=== PATIENT | male | born 1970 | race Caucasian/White ===

== ENCOUNTER 2021-01-18 08:12 | Day surgery (SDC) | payer OTHER ==
[2021-01-17 10:50] VITALS: BMI 28.0
[2021-01-18] MEDS ORDERED: Dexmedetomidine 200 MCG/2 ML VIAL ONE (08:31)
[2021-01-18] MEDS ORDERED: Fentanyl 100 MCG/2 ML VIAL ONE (08:31)
[2021-01-18] MEDS ORDERED: Lidocaine 1% PF 5 ML VIAL ONE (09:40)
[2021-01-18] MEDS ORDERED: Ondansetron PF 4 MG/2 ML Vial ONE (09:40)
[2021-01-18] MEDS ORDERED: Dexamethasone 20 MG/5 ML VIAL ONE (09:40)
[2021-01-18] MEDS ORDERED: PROPOFOL 200 MG/20 ML VIAL ONE (09:40)
== END 2021-01-18 12:25 | disposition home or self-care (01) ==
LOC: SDC 08:12
PROVIDERS: ATTEND Surgery
PROC: 0WUF0JZ Supplement Abdominal Wall with Synthetic Substitute, Open Approach (ICD-10-PCS; principal; 2021-01-18)
DX: K42.9 Umbilical hernia without obstruction or gangrene (principal); E78.2 Mixed hyperlipidemia; Z79.899 Other long term (current) drug therapy; Z98.52 Vasectomy status; Z87.81 Personal history of (healed) traumatic fracture
CPT/HCPCS: J0690; J1100; J2405; J2704; J3010

== ENCOUNTER 2022-10-20 09:36 | Observation (INO) | payer BC, OTHER ==
[2022-10-20 10:51] LABS: ALT (SGPT) 29 U/L (8-55); AST (SGOT) 30 U/L (5-34); Albumin 4.5 g/dL (3.5-5.0); Alkaline Phosphatase 52 U/L (40-110); Anion Gap 15 mmol/L (10-20); BUN (Urea Nitrogen) 13 mg/dL (8.9-20.6); Bilirubin, Total 0.6 mg/dL (0.2-1.2); CK (CPK) 510 U/L (30-200); Calc. Creatinine Clearance 0 mL/min (70-130); Calcium 9.7 mg/dL (7.8-10.44); Carbon Dioxide 24 mmol/L (22-29); Chloride 104 mmol/L (98-107); Estimated GFR 95; Globulin 2.9 g/dL (2.4-3.5); Glucose 102 mg/dL (70-105); Lipase 12 U/L (8-78); Potassium 4.1 mmol/L (3.5-5.1); Protein, Total 7.4 g/dL (6.0-8.3); Sodium 139 mmol/L (136-145)
[2022-10-20 10:54] LABS: #Eosinphils 0.2 thou/uL (0.0-0.7); #Lymphocytes 1.5 thou/uL (1.20-3.40); #Monocytes 0.6 thou/uL (0.11-0.59); #Neutrophils 3.8 thou/uL (1.40-6.50); %Basophils 0.8 % (0.0-1.0); %Eosinophils 3.2 % (0.0-10.0); %Lymphocytes 24.4 % (21.0-51.0); %Monocytes 9.6 % (0.0-10.0); %Neutrophils 62.1 % (42.0-75.0); Hemoglobin 14.8 g/dL (14.0-18.0); Mean Corpuscular HGB CONC 36.4 g/dL (32.0-36.0); Mean Corpuscular Hemoglobin 34.3 pg (27.0-31.0); Mean Corpuscular Volume 94.3 fl (78.0-98.0); Mean Platelet Volume 7.9 fL (7.4-10.4); Platelet Count 288 10x3/uL (130-400); RBC Distribution Width 11.6 % (11.5-14.5); White Blood Cell (WBC) Count 6.1 10x3/uL (4.8-10.8)
[2022-10-20] MEDS ORDERED: Aspirin Chewable 81 MG TAB ONE (11:36)
[2022-10-20] MEDS ORDERED: Nitroglycerin 2% Ointment 1 INCH/1 GM Packet ONE (11:36)
[2022-10-20] MEDS ORDERED: Acetaminophen 325 MG TAB PO PRN (12:17)
[2022-10-20] MEDS ORDERED: Senokot S 8.6-50 MG TAB PO PRN (12:17)
[2022-10-20] MEDS ORDERED: Nitroglycerin 0.4 MG TAB (25 Tab Bottle) SL PRN (12:20)
[2022-10-20] MEDS ORDERED: Sodium Chloride 0.9% 1,000 ML IV SCH (12:30)
[2022-10-20 13:39] LABS: Troponin I 0.012 ng/mL (< 0.028)
[2022-10-20 15:53] VITALS: BMI 30.7
[2022-10-20 16:33] LABS: Troponin I Less than 0.010 ng/mL (< 0.028)
[2022-10-20] MEDS ORDERED: Famotidine 20 MG TAB PO SCH (21:00)
[2022-10-21 05:01] LABS: #Eosinphils 0.2 thou/uL (0.0-0.7); #Lymphocytes 1.7 thou/uL (1.20-3.40); #Monocytes 0.6 thou/uL (0.11-0.59); #Neutrophils 3.5 thou/uL (1.40-6.50); %Basophils 0.1 % (0.0-1.0); %Eosinophils 3.4 % (0.0-10.0); %Lymphocytes 28.5 % (21.0-51.0); %Monocytes 9.7 % (0.0-10.0); %Neutrophils 58.3 % (42.0-75.0); Mean Corpuscular HGB CONC 33.8 g/dL (32.0-36.0); Mean Corpuscular Hemoglobin 32.2 pg (27.0-31.0); Mean Corpuscular Volume 95.3 fl (78.0-98.0); Mean Platelet Volume 7.5 fL (7.4-10.4); Platelet Count 277 10x3/uL (130-400); RBC Distribution Width 11.7 % (11.5-14.5); Red Blood Cell (RBC) Count 4.36 mill/uL (4.70-6.10)
[2022-10-21 05:25] LABS: Anion Gap 12 mmol/L (10-20); BUN (Urea Nitrogen) 17 mg/dL (8.9-20.6); CK (CPK) 196 U/L (30-200); Calc. Creatinine Clearance 105 mL/min (70-130); Calcium 9.6 mg/dL (7.8-10.44); Carbon Dioxide 28 mmol/L (22-29); Cardiac Risk 5.6 (Less than 4.5); Chloride 105 mmol/L (98-107); Cholesterol 190 mg/dl (< 200 Desired); Estimated GFR 83; Glucose 105 mg/dL (70-105); HDL Cholesterol 34 mg/dL (>60 Neg Risk); LDL Cholesterol, Calculated 118 mg/dL; Potassium 4.3 mmol/L (3.5-5.1); Sodium 141 mmol/L (136-145); Triglycerides 188 mg/dL (Less than 150)
[2022-10-21] MEDS ORDERED: Aspirin Chewable 81 MG TAB PO SCH (09:00)
[2022-10-21] MEDS ORDERED: Atorvastatin Calcium 10 MG TAB PO SCH (09:00)
[2022-10-21 15:59] VITALS: BP 126/65; TEMP 97.8
== END 2022-10-21 17:29 | disposition home or self-care (01) ==
LOC: ERS 09:36 → 2SW 12:17
PROVIDERS: ADMIT Internal Medicine; ATTEND Internal Medicine
DX: R07.89 Other chest pain (principal); E78.5 Hyperlipidemia, unspecified; I45.10 Unspecified right bundle-branch block; I08.8 Other rheumatic multiple valve diseases; Z79.899 Other long term (current) drug therapy
CPT/HCPCS: 36415; 71045; 71275; 78452; 80048; 80053; 80061; 82550; 83690; 83880; 84443; 84484; 85025; 85379; 93005; 93017; 93306; 96360; 96361; A9500; G0378; J7050